=== PATIENT | female | born 1960 | race Caucasian/White ===

== ENCOUNTER 2016-04-21 10:45 | Emergency (ER) | payer MEDICAID, OTHER ==
[2016-04-21 11:28] VITALS: BP 139/86
--- NOTE | 2016-04-21 12:09 | UC ---
Dental HPI - HPI Summary HPI Summary: left upper tooth cracked off for months, her dentist no longer takes her insurance, has appt in [place] upcoming. Severe pain in left maxillary area, and today a "blood blister" ruptured with bloody drainage. No fever. Headache. - History of Current Complaint Chief Complaint: UCDentalProblem Stated Complaint: DENTAL Time Seen by Provider: 04/21/16 12:00 Hx Obtained From: Patient Hx Last Menstrual Period: March Onset/Duration: Gradual Onset, Lasting Weeks - 1 Severity: Severe Aggravating: Heat, Cold, Chewing Alleviating: Nothing Related History: Discharge - blood/pus, Swelling - left cheek - Allergies/Home Medications Allergies/Adverse Reactions: Allergies Allergy/AdvReac Type Severity Reaction Status Date / Time No Known Allergies Allergy Verified 04/21/16 11:21 Home Medications: Home Medications Ibuprofen [Advil] 400 mg PO Q3H PRN 04/21/16 [History Confirmed 04/21/16] PMH/Surg Hx/FS Hx/Imm Hx Endocrine History Of: Denies: Diabetes, Thyroid Disease, Hyperthyroidism, Hypothyroidism, Dyslipidemia Cardiovascular History Of: Denies: Cardiac Disorders, Hypertension, Pacemaker/ICD, Myocardial Infarction , Congestive Heart Failure, Atrial Fibrillation, Deep Vein Thrombosis, Bleeding Disorders Respiratory History Of: Reports: COPD, Asthma Denies: Bronchitis, Pneumonia, Pulmonary Embolism GI/ History Of: Denies: Gastroesophageal Reflux, Ulcer, Gastrointestinal Bleed, Gall Bladder Disease, Kidney Stones, Diverticulitis, Renal Disease, Urosepsis Neurological History Of: Denies: TIA, CVA, Dementia, Seizures, Migraine Psychological History Of: Denies: Anxiety, Depression, Bipolar Disorder, Schizophrenia, Post Traumatic Stress Disorder Cancer History Of: Denies: Lung Cancer, Colorectal Cancer, Breast Cancer, Prostate Cancer, Cervical Cancer Other History Of: Negative For: HIV, Hepatitis B, Hepatitis C, Anticoagulant Therapy - Surgical History Surgical History: Yes Surgery Procedure, Year, and Place: C-seCtions x4, last 1989. Tubal lig - Family History Known Family History: Positive: None, Cardiac Disease - father Negative: Hypertension, Diabetes - Social History Occupation: Employed Full-time Lives: With Family Alcohol Use: None Substance Use Type: None Smoking Status (MU): Heavy Every Day Tobacco Smoker Type: Cigarettes Amount Used/How Often: 1/2 pack daily Length of Time of Smoking/Using Tobacco: 30 years - Immunization History Most Recent Influenza Vaccination: not this season Review of Systems Constitutional: Negative Skin: Negative Eyes: Negative ENT: Dental Pain Respiratory: Negative Cardiovascular: Negative Gastrointestinal: Negative Genitourinary: Negative Motor: Negative Neurovascular: Negative Musculoskeletal: Negative Neurological: Negative Psychological: Negative All Other Systems Reviewed And Are Negative: Yes Physical Exam Triage Information Reviewed: Yes Appearance: Well-Appearing, No Pain Distress, Well-Nourished Vital Signs: Initial Vital Signs Temp 98.1 F 04/21/16 11:23 Pulse 82 04/21/16 11:23 Resp 18 04/21/16 11:23 BP 139/86 04/21/16 11:23 Pulse Ox 99 04/21/16 11:23 Vital Signs Reviewed: Yes Eye Exam: Normal ENT: Positive: Hearing grossly normal, Pharynx normal, TMs normal. Negative: Trismus, Muffled/hoarse voice Dental: Positive: Gross Decay/Caries @ - broken off canine tooth left upper with gum swelling and drainage. Left maxillary area slightly swollen Neck exam: Normal Respiratory Exam: Normal Cardiovascular Exam: Normal Musculoskeletal Exam: Normal Neurological Exam: Normal Psychological Exam: Normal Skin Exam: Normal Dental Complaint Course/Dx - Differential Dx/Diagnosis Differential Diagnosis/Dx: Fractured Tooth, Odontogenic Pain Provider Diagnoses: dental abscess Discharge - Discharge Plan Condition: Stable Disposition: HOME Prescriptions: Hydrocodone-Acetaminophen [Hydrocodone/Acetaminophen 5-325 mg] 1 - 2 tab PO Q6HR PRN #20 tab MDD 6 tab PRN Reason: Pain Penicillin VK TAB 500 MG(NF) [Penicillin VK 500 mg Tab(NF)] 500 mg PO QID #40 tab Patient Education Materials: Dental Abscess (ED) Referrals: ANATOLIY Campbell [Primary Care Provider] -
== END 2016-04-21 12:23 | disposition home or self-care (01) ==
LOC: UCCORT 10:45
DX: K04.7 Periapical abscess without sinus (principal); F17.210 Nicotine dependence, cigarettes, uncomplicated
CPT/HCPCS: 99212; G0463